=== PATIENT | female | born 1990 | race Caucasian/White ===

== ENCOUNTER 2018-10-20 12:31 | Emergency (ER) | payer SELFPAY ==
[~2018-10-20] VITALS: Ht 152.4 cm; Wt 102.5 kg
[~2018-10-20 12:31] MED LIST: AUG500 PO; COL100 PO; LAC PO; LOP600 PO; NORCO1 TA2 PO
[2018-10-20 12:48] VITALS: BP 125/77; Ht 152.4 cm; Wt 102.5 kg
== END 2018-10-20 13:27 | disposition home or self-care (01) ==
LOC: ED 12:31
DX: S86.912A Strain of unspecified muscle(s) and tendon(s) at lower leg level, left leg, initial encounter (principal); E78.00 Pure hypercholesterolemia, unspecified; Z90.89 Acquired absence of other organs; X50.9XXA Other and unspecified overexertion or strenuous movements or postures, initial encounter; Y93.01 Activity, walking, marching and hiking; Y92.89 Other specified places as the place of occurrence of the external cause; Y99.8 Other external cause status
CPT/HCPCS: J1885

== ENCOUNTER 2018-11-29 21:25 | Emergency (ER) | payer OTHER ==
[~2018-11-29] VITALS: Ht 152.4 cm; Wt 104.4 kg
[2018-11-29 21:37] VITALS: Ht 152.4 cm; Wt 104.4 kg
[2018-11-30 00:39] VITALS: BP 163/91
== END 2018-11-30 00:39 | disposition home or self-care (01) ==
LOC: ED 21:25
DX: S61.011A Laceration without foreign body of right thumb without damage to nail, initial encounter (principal); E78.00 Pure hypercholesterolemia, unspecified; W26.8XXA Contact with other sharp object(s), not elsewhere classified, initial encounter; Y93.H1 Activity, digging, shoveling and raking; Y92.89 Other specified places as the place of occurrence of the external cause; Y99.8 Other external cause status
CPT/HCPCS: 90715; J2001

== ENCOUNTER 2019-11-19 09:29 | Emergency (ER) | payer OTHER ==
[~2019-11-19] VITALS: Ht 152.4 cm; Wt 103.9 kg
[2019-11-19 09:42] VITALS: Ht 152.4 cm; Wt 103.9 kg
[2019-11-19 12:59] VITALS: BP 151/85
== END 2019-11-19 12:45 | disposition home or self-care (01) ==
LOC: ED 09:29
DX: J02.9 Acute pharyngitis, unspecified (principal); E78.00 Pure hypercholesterolemia, unspecified; R11.2 Nausea with vomiting, unspecified; Z20.828 Contact with and (suspected) exposure to other viral communicable diseases
CPT/HCPCS: U0003-CS